=== PATIENT | female | born 1995 | race Caucasian/White ===

== ENCOUNTER → 2020-03-16 | Outpatient (CLI) | payer SELFPAY | LOC: M LABSMTC 13:15 | PROVIDERS: ATTEND Pediatrics | DX: Z20.828 Contact with and (suspected) exposure to other viral communicable diseases (principal) ==

== ENCOUNTER 2021-09-22 16:52 | Emergency (ER) | payer BC, SELFPAY ==
[~2021-09-22] VITALS: Ht 154.9 cm; Wt 47.7 kg
[2021-09-22] MEDS ORDERED: MULTTAB20 PO (17:07)
[2021-09-22] MEDS ORDERED: NS 1,000 ML IV ONE (18:15)
[2021-09-22 18:42] LABS: BASO # 0.1 10^3/uL (0.0-0.2); BASO % 0.5 % (0.0-1.0); EOS # 0.2 10^3/uL (0.0-0.5); EOS % 1.7 % (0.0-3.0); HEMATOCRIT 41.7 % (36.0-47.0); HEMOGLOBIN 13.8 g/dl (12.0-15.5); LYMPH # 3.4 10^3/uL (1.5-5.0); LYMPH % 34.7 % (24.0-44.0); MEAN CORPUSCULAR HEMOGLOBIN 30.9 pg (27.0-33.0); MEAN CORPUSCULAR HGB CONC 33.1 g/dl (32.0-36.5); MEAN CORPUSCULAR VOLUME 93.3 fl (80.0-96.0); MONO # 0.6 10^3/uL (0.0-0.8); MONO % 5.7 % (2.0-8.0); NEUTROPHILS # 5.6 10^3/uL (1.5-8.5); NEUTROPHILS % 57.1 % (36.0-66.0); PLATELET COUNT, AUTOMATED 239 10^3/uL (150-450); RED BLOOD COUNT 4.47 10^6/uL (4.00-5.40); WHITE BLOOD COUNT 9.8 10^3/uL (4.0-10.0)
[2021-09-22 19:12] LABS: BLOOD UREA NITROGEN 11 MG/DL (7-18); CALCIUM LEVEL 9.9 MG/DL (8.5-10.1); CARBON DIOXIDE LEVEL 27 MEQ/L (21-32); CHLORIDE LEVEL 105 MEQ/L (98-107); CREATININE FOR GFR 0.85 MG/DL (0.55-1.30); GLOMERULAR FILTRATION RATE > 60.0 (>60); GLUCOSE, FASTING 93 MG/DL (70-100); POTASSIUM SERUM 4.2 MEQ/L (3.5-5.1); SODIUM LEVEL 141 MEQ/L (136-145)
[2021-09-22 19:13] LABS: ALBUMIN 4.5 GM/DL (3.2-5.2); ALT/SGPT 22 U/L (12-78); BILIRUBIN,DIRECT 0.1 MG/DL (0.0-0.2); BILIRUBIN,TOTAL 0.5 MG/DL (0.2-1.0); FREE T4 1.03 NG/DL (0.76-1.46); LIPASE 133 U/L (73-393); MAGNESIUM LEVEL 2.1 MG/DL (1.8-2.4); TOTAL PROTEIN 8.2 GM/DL (6.4-8.2)
[2021-09-22 20:02] VITALS: BP 126/74
== END 2021-09-22 20:23 | disposition home or self-care (01) ==
LOC: M ED 16:52
DX: R42 Dizziness and giddiness (principal); R05.9 Cough, unspecified; R06.02 Shortness of breath; I45.10 Unspecified right bundle-branch block; R07.9 Chest pain, unspecified; R10.9 Unspecified abdominal pain; R19.7 Diarrhea, unspecified; F17.290 Nicotine dependence, other tobacco product, uncomplicated; Z88.0 Allergy status to penicillin; Z79.899 Other long term (current) drug therapy

== ENCOUNTER → 2021-11-01 | Outpatient (REF) | payer BC, OTHER ==
[~2021-11-01] MED LIST: MULTTAB20 PO
== END ==
LOC: M LAB REF 21:15
PROVIDERS: ATTEND Physician Assistant
DX: Z32.00 Encounter for pregnancy test, result unknown (principal)

== ENCOUNTER 2022-01-13 07:26 | Emergency (ER) | payer BC, OTHER ==
[~2022-01-13] VITALS: Ht 154.9 cm; Wt 50.5 kg
[2022-01-13 07:28] VITALS: BP 131/71
[2022-01-13] MEDS ORDERED: PERI12LIQ (07:45)
[2022-01-13] MEDS ORDERED: OXYC1TAB23 (07:45)
[2022-01-13] MEDS ORDERED: NS 1,000 ML IV ONE (07:55)
[2022-01-13] MEDS ORDERED: ONDANSETRON 4MG 2ML VIAL IV ONE (07:55)
[2022-01-13 08:36] LABS: BASO % 0.3 % (0.0-1.0); EOS # 0.1 10^3/uL (0.0-0.5); EOS % 0.7 % (0.0-3.0); HEMATOCRIT 38.7 % (36.0-47.0); LYMPH # 2.1 10^3/uL (1.5-5.0); LYMPH % 17.4 % (24.0-44.0); MEAN CORPUSCULAR HGB CONC 33.6 g/dl (32.0-36.5); MEAN CORPUSCULAR VOLUME 92.4 fl (80.0-96.0); MONO # 0.7 10^3/uL (0.0-0.8); MONO % 5.3 % (2.0-8.0); NEUTROPHILS # 9.3 10^3/uL (1.5-8.5); NEUTROPHILS % 75.8 % (36.0-66.0); PLATELET COUNT, AUTOMATED 213 10^3/uL (150-450); RED BLOOD COUNT 4.19 10^6/uL (4.00-5.40); WHITE BLOOD COUNT 12.3 10^3/uL (4.0-10.0)
[2022-01-13 09:09] LABS: ALBUMIN 3.7 GM/DL (3.2-5.2); ALT/SGPT 24 U/L (12-78); BILIRUBIN,TOTAL 0.7 MG/DL (0.2-1.0); BLOOD UREA NITROGEN 10 MG/DL (7-18); CALCIUM LEVEL 9.3 MG/DL (8.5-10.1); CARBON DIOXIDE LEVEL 24 MEQ/L (21-32); CHLORIDE LEVEL 104 MEQ/L (98-107); CREATININE FOR GFR 0.65 MG/DL (0.55-1.30); GLOMERULAR FILTRATION RATE > 60.0 (>60); GLUCOSE, FASTING 90 MG/DL (70-100); POTASSIUM SERUM 3.5 MEQ/L (3.5-5.1); SODIUM LEVEL 139 MEQ/L (136-145); TOTAL PROTEIN 7.9 GM/DL (6.4-8.2)
[2022-01-13 09:16] LABS: RSV AMPLIFICATION NEGATIVE (NEGATIVE)
[2022-01-13] MEDS ORDERED: ONDA4TAB6 PO (09:59)
== END 2022-01-13 10:19 | disposition home or self-care (01) ==
LOC: M ED 07:26
DX: O21.9 Vomiting of pregnancy, unspecified (principal); R10.9 Unspecified abdominal pain; Z88.0 Allergy status to penicillin; Z91.048 Other nonmedicinal substance allergy status; Z3A.17 17 weeks gestation of pregnancy; Z79.810 Long term (current) use of selective estrogen receptor modulators (SERMs); Z79.899 Other long term (current) drug therapy
CPT/HCPCS: 80053; 85025; 87631; 96361; 96374; 99284; J2405

== ENCOUNTER → 2022-04-07 | Outpatient (CLI) | payer OTHER ==
[~2022-04-07] MED LIST changes: +ONDA4TAB6 PO; +OXYC1TAB23; +PERI12LIQ
== END ==
LOC: M WHC 11:33
PROVIDERS: ATTEND Registered Nurse
DX: Z36.9 Encounter for antenatal screening, unspecified (principal); Z3A.20 20 weeks gestation of pregnancy

== ENCOUNTER 2022-04-10 11:22 | Emergency (ER) | payer OTHER ==
[~2022-04-10] VITALS: Ht 154.9 cm; Wt 60.4 kg
[2022-04-10 14:55] LABS: BASO % 0.3 % (0.0-1.0); EOS # 0.1 10^3/uL (0.0-0.5); EOS % 1.1 % (0.0-3.0); HEMATOCRIT 37.8 % (36.0-47.0); HEMOGLOBIN 12.7 g/dl (12.0-15.5); LYMPH # 2.5 10^3/uL (1.5-5.0); LYMPH % 20.2 % (24.0-44.0); MEAN CORPUSCULAR HGB CONC 33.6 g/dl (32.0-36.5); MEAN CORPUSCULAR VOLUME 95.2 fl (80.0-96.0); MONO # 0.7 10^3/uL (0.0-0.8); MONO % 5.5 % (2.0-8.0); NEUTROPHILS # 8.9 10^3/uL (1.5-8.5); NEUTROPHILS % 72.2 % (36.0-66.0); PLATELET COUNT, AUTOMATED 223 10^3/uL (150-450); RED BLOOD COUNT 3.97 10^6/uL (4.00-5.40); WHITE BLOOD COUNT 12.3 10^3/uL (4.0-10.0)
[2022-04-10 15:28] LABS: ALBUMIN 3.3 G/DL (3.2-5.2); ALKALINE PHOSPHATASE 93 U/L (46-116); ALT/SGPT < 9 U/L (7.0-40); AST/SGOT 24 U/L (<34); BILIRUBIN,DIRECT < 0.1 MG/DL (<0.4); BILIRUBIN,TOTAL 0.3 MG/DL (0.3-1.2); BLOOD UREA NITROGEN 8 MG/DL (9-23); CALCIUM LEVEL 8.7 MG/DL (8.5-10.1); CARBON DIOXIDE LEVEL 25 MMOL/L (20-31); CHLORIDE LEVEL 104 MMOL/L (98-107); CK-MB VALUE MASS < 1.0 NG/ML (<3.6); CPK CREATINE PHOSPHOKINASE 62 U/L (34-145); CREATININE FOR GFR 0.53 MG/DL (0.55-1.30); GLOMERULAR FILTRATION RATE > 60.0 (>60); GLUCOSE, FASTING 71 MG/DL (60-100); MB/CK RELATIVE INDEX 1.61 (< OR =4); POTASSIUM SERUM 3.8 MMOL/L (3.5-5.1); SODIUM LEVEL 138 MMOL/L (136-145); TOTAL PROTEIN 7.3 G/DL (5.7-8.2)
[2022-04-10 15:31] LABS: THYROID STIMULATING HORMONE 1.038 uIU/ML (0.55-4.78)
[2022-04-10 16:27] LABS: CK-MB VALUE MASS < 1.0 NG/ML (<3.6); CPK CREATINE PHOSPHOKINASE 47 U/L (34-145); MB/CK RELATIVE INDEX 2.12 (< OR =4)
[2022-04-10 17:10] VITALS: BP 137/79
== END 2022-04-10 17:15 | disposition home or self-care (01) ==
LOC: M ED 13:38
DX: B34.9 Viral infection, unspecified (principal); I49.8 Other specified cardiac arrhythmias; I45.10 Unspecified right bundle-branch block; E03.9 Hypothyroidism, unspecified; Z88.0 Allergy status to penicillin; Z91.048 Other nonmedicinal substance allergy status; Z79.810 Long term (current) use of selective estrogen receptor modulators (SERMs)

== ENCOUNTER → 2022-05-05 | Outpatient (CLI) | payer OTHER | LOC: M WHC 11:34 | PROVIDERS: ATTEND Registered Nurse | DX: Z34.92 Encounter for supervision of normal pregnancy, unspecified, second trimester (principal); Z3A.32 32 weeks gestation of pregnancy ==

== ENCOUNTER 2022-05-13 14:52 | Outpatient (CLI) | payer OTHER ==
[~2022-05-13] VITALS: Ht 154.9 cm; Wt 63.3 kg
[2022-05-13 15:09] VITALS: BP 137/82
== END 2022-05-13 17:10 | disposition home or self-care (01) ==
LOC: M LDO 14:52
PROVIDERS: ATTEND Registered Nurse
DX: O99.283 Endocrine, nutritional and metabolic diseases complicating pregnancy, third trimester (principal); E05.90 Thyrotoxicosis, unspecified without thyrotoxic crisis or storm; O99.343 Other mental disorders complicating pregnancy, third trimester; F32.A Depression, unspecified; F41.9 Anxiety disorder, unspecified; Z3A.33 33 weeks gestation of pregnancy; Z88.0 Allergy status to penicillin; Z91.048 Other nonmedicinal substance allergy status

== ENCOUNTER → 2022-06-02 | Outpatient (CLI) | payer OTHER | LOC: M WHC 11:31 | PROVIDERS: ATTEND Registered Nurse | DX: Z34.83 Encounter for supervision of other normal pregnancy, third trimester (principal) ==

== ENCOUNTER 2022-06-19 10:50 | Inpatient (IN) | payer OTHER ==
[2022-06-19] VITALS (20 sets, daily range): BP systolic 113–143; BP diastolic 58–99
[~2022-06-19] VITALS: Ht 154.9 cm; Wt 67.9 kg
[2022-06-19] MEDS ORDERED: LACTATED RINGER'S 1000 ML IV STA (10:58)
[2022-06-19] MEDS ORDERED: METHYLERGONOVINE MALEATE 0.2MG/ML 1ML VIAL IM PRN (11:00)
[2022-06-19] MEDS ORDERED: TRANEXAMIC ACID INJection 1,000 MG in NS 100 ML IV PRN (11:00)
[2022-06-19] MEDS ORDERED: LIDOCAINE 1% MDV 20ML VIAL INFIL PRN (11:00)
[2022-06-19] MEDS ORDERED: OXYTOCIN DRIP 30 UNITS in IV 1 EA IV PRN (11:00)
[2022-06-19] MEDS ORDERED: OXYTOCIN INJ 10UNITS/ML 1ML VIAL IM PRN (11:00)
[2022-06-19] MEDS ORDERED: CARBOPROST TROMETHAMINE 250 MCG/ML AMP IM PRN (11:00)
[2022-06-19] MEDS ORDERED: HOME MED LIST COMPLETE! XX SCH (11:20)
[2022-06-19 11:38] LABS: HEMATOCRIT 34.9 % (36.0-47.0); HEMOGLOBIN 11.9 g/dl (12.0-15.5); MEAN CORPUSCULAR HEMOGLOBIN 31.8 pg (27.0-33.0); MEAN CORPUSCULAR HGB CONC 34.1 g/dl (32.0-36.5); MEAN CORPUSCULAR VOLUME 93.3 fl (80.0-96.0); PLATELET COUNT, AUTOMATED 242 10^3/uL (150-450); RED BLOOD COUNT 3.74 10^6/uL (4.00-5.40); WHITE BLOOD COUNT 13.8 10^3/uL (4.0-10.0)
[2022-06-19] MEDS ORDERED: EPIDURAL/PCA KEYS XX PRN (12:00)
[2022-06-19] MEDS ORDERED: ePHEDrine SULFATE 25 MG/5 ML(5MG/ML) SYRINGE IVP PRN (12:00)
[2022-06-19] MEDS ORDERED: FENTANYL/ROPIVACAINE/NACL BAG 100 ML EPIDURAL SCH (12:00)
[2022-06-19] MEDS ORDERED: diphenhydrAMINE 50MG/ML VIAL IV PRN (12:00)
[2022-06-19] MEDS ORDERED: NALOXONE INJ 0.4MG/1ML VIAL IV PRN (12:00)
[2022-06-19] MEDS ORDERED: LR 500 ML IV PRN (12:00)
[2022-06-19] MEDS ORDERED: LR 1,000 ML IV SCH (12:00)
[2022-06-19] MEDS ORDERED: ONDANSETRON 4MG 2ML VIAL IV PRN (12:00)
[2022-06-19] MEDS ORDERED: RHOGAM 300MCG (1500IU) INJ IM SCH (16:15)
[2022-06-19] MEDS ORDERED: DIBUCAINE 1% OINTMENT 30GM TOP PRN (16:15)
[2022-06-19] MEDS ORDERED: IBUPROFEN 600MG TAB PO PRN (16:15)
[2022-06-19] MEDS ORDERED: METHYLERGONOVINE MALEATE 0.2 MG TAB PO PRN (16:15)
[2022-06-19] MEDS ORDERED: ANUSOL HC CREAM 30GM TOP PRN (16:15)
[2022-06-19] MEDS ORDERED: ACETAMINOPHEN TAB 650MG DOSE (2X325MG) PO PRN (16:15)
[2022-06-19] MEDS: IBUPROFEN 800 MG TAB PO PRN (16:25)
[2022-06-19] MEDS: PRENATAL VITAMINS CHEWABLE TABLET PO SCH (16:25)
[2022-06-19] MEDS: DOCUSATE SODIUM 100MG CAPSULE PO PRN (20:43)
[2022-06-19] MEDS: ACETAMINOPHEN 500 MG TAB PO PRN (23:41)
[2022-06-20] MEDS: IBUPROFEN 800 MG TAB PO PRN ×2 (01:35→09:47)
[2022-06-20 06:00] VITALS: BP 118/67
[2022-06-20] MEDS: ACETAMINOPHEN 500 MG TAB PO PRN ×2 (06:12→21:52)
[2022-06-20 06:17] LABS: HEMATOCRIT 33.2 % (36.0-47.0); HEMOGLOBIN 10.9 g/dl (12.0-15.5); MEAN CORPUSCULAR HEMOGLOBIN 31.1 pg (27.0-33.0); MEAN CORPUSCULAR HGB CONC 32.8 g/dl (32.0-36.5); MEAN CORPUSCULAR VOLUME 94.6 fl (80.0-96.0); PLATELET COUNT, AUTOMATED 221 10^3/uL (150-450); RED BLOOD COUNT 3.51 10^6/uL (4.00-5.40); WHITE BLOOD COUNT 17.2 10^3/uL (4.0-10.0)
[2022-06-20] MEDS: PRENATAL VITAMINS CHEWABLE TABLET PO SCH (09:47)
[2022-06-20 18:00] VITALS: BP 119/71
[2022-06-20] MEDS: DOCUSATE SODIUM 100MG CAPSULE PO PRN (21:52)
[2022-06-21] MEDS: IBUPROFEN 800 MG TAB PO PRN (03:04)
[2022-06-21 06:00] VITALS: BP 112/64
[2022-06-21] MEDS: PRENATAL VITAMINS CHEWABLE TABLET PO SCH (08:16)
[2022-06-21] MEDS ORDERED: MEASLES,MUMPS,RUBELLA VACCINE INJ (MMR-II) SC.IMMUN ONE (09:00)
[2022-06-21] MEDS: ACETAMINOPHEN 500 MG TAB PO PRN (10:59)
== END 2022-06-21 12:25 | disposition home or self-care (01) | DRG 807 ==
LOC: M LDI 10:50 → M OBS 18:20
PROVIDERS: ADMIT Obstetrics & Gynecology; ATTEND Obstetrics & Gynecology
PROC: 10E0XZZ Delivery of Products of Conception, External Approach (ICD-10-PCS; principal; 2022-06-19)
PROC: 0HQ9XZZ Repair Perineum Skin, External Approach (ICD-10-PCS; 2022-06-19)
DX: O70.0 First degree perineal laceration during delivery (principal); Z37.0 Single live birth; Z3A.39 39 weeks gestation of pregnancy; Z88.0 Allergy status to penicillin